=== PATIENT | male | born 1960 | race African-American/Black ===

== ENCOUNTER 2016-06-02 03:00 | Emergency (ER) | payer SELFPAY ==
[~2016-06-02] VITALS: Ht 179.1 cm; Wt 75.0 kg
[~2016-06-02 03:00] MED LIST: IBUP100S30 PO
[2016-06-02 03:13] VITALS: BP 121/74; PULSE 88; RESP 20; TEMP 97.3; O2SAT 96
[2016-06-02] MEDS ORDERED: SODIUM CHLORIDE 0.9% FLUSH 5 ML FLUSH IVF PRN (06:00)
--- NOTE | 2016-06-02 06:08 | PD ---
HPI Chief Complaint: Numbness/Tingling Time Seen by Provider: 05:50 Travel History International Travel<30 days: No Contact w/Intl Traveler<30days: No Traveled to known affect area: No History of Present Illness HPI 56-year-old male here for evaluation of right shoulder pain and right arm numbness. The patient states he has been having these symptoms intermittently for the past 3 months and the reason why is here tonight is because his girlfriend made him come in for evaluation. He denies focal motor deficits or weakness. He also states that he has been having a cough lately and when he coughs he feels as though he may pass out. No chest pain. He smokes cigarettes daily. Denies drug or alcohol use. Chart review shows that the patient was admitted in December 2015 for recurrent syncopal episodes and thought to have TIA. MRI brain at that time showed no acute findings. MRA brain showed atherosclerotic irregularity of both distal internal carotid arteries, no hemodynamically significant stenosis. MRA neck was normal. [facility] Past Medical History Medical History: Denies Significant Hx Blood Disorders: No Cancer: No Cardiovascular Problems: No Endocrine: No Genitourinary: No Immune Disorder: No Musculoskeletal: No Neurologic: No Psychiatric: No Reproductive: No Respiratory: No Past Surgical History Other Surgery: Yes (Sx on left hand. ) Social History Alcohol Use: Yes (states he quit 2 weeks ago ) Tobacco Use: Yes Substance Use: No Allergies-Medications (Allergen,Severity, Reaction): Coded Allergies: Cortisone (Verified Allergy, Unknown, 06/02/16) No Known Allergies (Unverified , 06/02/16) Reported Meds & Prescriptions Reported Meds & Active Scripts Active Review of Systems Except as stated in HPI: all other systems reviewed are Neg Physical Exam Narrative GENERAL: Well-developed, well-nourished, comfortable, no acute distress. SKIN: Warm and dry. No rash. HEAD: Atraumatic. Normocephalic. EYES: Pupils equal and round. No scleral icterus. No injection or drainage. ENT: Mucous membranes pink and moist. NECK: Trachea midline. No JVD. CARDIOVASCULAR: Regular rate and rhythm. No murmur appreciated. RESPIRATORY: No accessory muscle use. Clear to auscultation. Breath sounds equal bilaterally. GASTROINTESTINAL: Abdomen soft, non-tender, nondistended. MUSCULOSKELETAL: No obvious deformities. No clubbing. No cyanosis. No edema. Right shoulder with mild tenderness without obvious deformity, with normal range of motion, without warmth or erythema. The rest of his joints and extremities are without for many, without tenderness, with normal range of motion. NEUROLOGICAL: Awake and alert. No obvious cranial nerve deficits. Motor grossly within normal limits. Normal speech. Normal muscle strength in bilateral upper and lower extremities. PSYCHIATRIC: Appropriate mood and affect; insight and judgment normal. Data Data Last Documented VS Vital Signs Date Time Temp Pulse Resp B/P Pulse Ox O2 Delivery O2 Flow Rate FiO2 06/02/16 03:13 97.3 88 20 121/74 96 Orders Complete Blood Count With Diff (06/02/16 05:54) Comprehensive Metabolic Panel (06/02/16 05:54) Prothrombin Time / Inr (Pt) (06/02/16 05:54) Act Partial Throm Time (Ptt) (06/02/16 05:54) Iv Access Insert/Monitor (06/02/16 05:54) Ecg Monitoring (06/02/16 05:54) Oximetry (06/02/16 05:54) Sodium Chloride 0.9% Flush (Ns Flush) (06/02/16 06:00) Electrocardiogram (06/02/16 05:54) Chest, Single Ap (06/02/16 ) Influenzae A/B Antigen (06/02/16 05:54) Ct Brain W/O Iv Contrast(Rout) (06/02/16 ) Ct Cerv Spine W/O Contrast (06/02/16 ) Shoulder, Complete (>2vws) (06/02/16 ) Ckmb (Isoenzyme) Profile (06/02/16 06:08) Troponin I (06/02/16 06:08) CKMB (06/02/16 06:10) CKMB% (06/02/16 06:10) Sodium Chlor 0.9% 1000 Ml Inj (Ns 1000 M (06/02/16 07:15) Mandatory Outpatient Referral (06/02/16 07:17) Labs Laboratory Tests Test 06/02/16 06:10 White Blood Count 8.3 TH/MM3 Red Blood Count 4.52 MIL/MM3 Hemoglobin 13.9 GM/DL Hematocrit 41.6 % Mean Corpuscular Volume 91.9 FL Mean Corpuscular Hemoglobin 30.8 PG Mean Corpuscular Hemoglobin 33.5 % Concent Red Cell Distribution Width 14.5 % Platelet Count 311 TH/MM3 Mean Platelet Volume 7.2 FL Neutrophils (%) (Auto) 61.3 % Lymphocytes (%) (Auto) 26.4 % Monocytes (%) (Auto) 8.9 % Eosinophils (%) (Auto) 2.7 % Basophils (%) (Auto) 0.7 % Neutrophils # (Auto) 5.1 TH/MM3 Lymphocytes # (Auto) 2.2 TH/MM3 Monocytes # (Auto) 0.7 TH/MM3 Eosinophils # (Auto) 0.2 TH/MM3 Basophils # (Auto) 0.1 TH/MM3 CBC Comment DIFF FINAL Differential Comment Prothrombin Time 10.2 SEC Prothromb Time International 0.9 RATIO Ratio Activated Partial 28.7 SEC Thromboplast Time Sodium Level 142 MEQ/L Potassium Level 3.7 MEQ/L Chloride Level 109 MEQ/L Carbon Dioxide Level 24.3 MEQ/L Anion Gap 9 MEQ/L Blood Urea Nitrogen 11 MG/DL Creatinine 0.85 MG/DL Estimat Glomerular Filtration 113 ML/MIN Rate Random Glucose 98 MG/DL Calcium Level 8.5 MG/DL Total Bilirubin 0.3 MG/DL Aspartate Amino Transf 102 U/L (AST/SGOT) Alanine Aminotransferase 38 U/L (ALT/SGPT) Alkaline Phosphatase 62 U/L Total Creatine Kinase 989 U/L Creatine Kinase MB 9.4 NG/ML Creatine Kinase MB % 1.0 % Troponin I LESS THAN 0.02 NG/ML Total Protein 7.5 GM/DL Albumin 3.7 GM/DL MDM Medical Decision Making Medical Screen Exam Complete: Yes Emergency Medical Condition: Yes Medical Record Reviewed: Yes Interpretation(s) EKG: Sinus, rate 66, normal axis, normal intervals, LVH, early repolarization. Although the machine reading reports acute MT, his EKG is unchanged from prior. He is not having any chest pain. This is not a STEMI. Differential Diagnosis Intracranial abnormality, electrolyte abnormality, cervical spine impingement, dissection, pneumonia, ACS unlikely, radiculopathy, Narrative Course Vital signs show heart rate 80, blood pressure 121/74, pulse ox 96% on room air , oral temp of 97.3F. CBC is unremarkable. CMP is remarkable for AST 102, otherwise unremarkable. CK is 989. CK-MB percent is 1%. Troponin is negative. Chest x-ray: The lungs are clear. The chest x-ray was looked at by me and shows a normal mediastinum. Right shoulder x-ray: Negative exam. Influenza is negative. CT head read as negative noncontrast CT brain. CT cervical spine read as negative cervical spine other than straightening of the cervical lordosis. The patient has normal muscle strength in all 4 extremities. His bilateral distal radial pulses are brisk and equal. I do not believe he has a dissection based on exam. His paresthesias are likely from a peripheral neuropathy. He has normal range of motion in his right shoulder with pain with movement and some mild tenderness. I do not believe that this is a septic arthritis. There is no warmth or erythema. He is afebrile. CK is 989. Patient denies cocaine or illicit drug use. He will be given a liter of IV fluids. All of the patient's EKG machine reading reports acute MT with ST elevations in the inferior leads, patient's EKG is unchanged from prior, and this is more consistent with early repolarization. There are no reciprocal changes. He has no chest pain. Patient was made aware of all findings. He is resting comfortably. 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 At this point I believe he is stable for discharge home with outpatient follow-up and outpatient workup with neurology. I will put in a mandatory outpatient referral for him. He was informed on when to return to the emergency department. He verbalizes understanding and agreement with plan. Diagnosis Primary Impression: Paresthesias Referrals: Jah Hernández MD 3 days Neurologist Primary Care Physician 3 days Additional Instructions: Follow-up with neurologist Dr. Hernández or a neurologist of your choice this week. Follow-up with a primary care physician this week. Return to the emergency department for worsening symptoms or any other concerns. Disposition: 01 DISCHARGE HOME Condition: Stable King Lugo MD Jun 02, 2016 06:08
--- NOTE | 2016-06-02 06:25 | RADRPT ---
EXAM DATE/TIME: 06/02/2016 06:02 [facility] COMPARISON: CT BRAIN W/O CONTRAST, December 14, 2015, 21:20. INDICATIONS : Weakness. RADIATION DOSE: 56.35 CTDIvol (mGy) MEDICAL HISTORY : None SURGICAL HISTORY : None. ENCOUNTER: Initial ACUITY: 1 day PAIN SCALE: 0/10 LOCATION: cranial TECHNIQUE: Multiple contiguous axial images were obtained of the head. Using automated exposure control and adj ustment of the mA and/or kV according to patient size, radiation dose was kept as low as reasonably a chievable to obtain optimal diagnostic quality images. FINDINGS: CEREBRUM: The ventricles are normal for age. No evidence of midline shift, mass lesion, hemorrhage or acute in farction. No extra-axial fluid collections are seen. POSTERIOR FOSSA: The cerebellum and brainstem are intact. The 4th ventricle is midline. The cerebellopontine angle i s unremarkable. EXTRACRANIAL: The visualized portion of the orbits is intact. SKULL: The calvaria is intact. No evidence of skull fracture. CONCLUSION: Negative noncontrast CT brain. Matthew Lim MD on June 02, 2016 at 6:18 Board Certified Radiologist. This report was verified electronically.
--- NOTE | 2016-06-02 06:26 | RADRPT ---
EXAM DATE/TIME: 06/02/2016 06:02 [facility] COMPARISON: No previous studies available for comparison. INDICATIONS : Weakness, right sided body pain. RADIATION DOSE: 33.01 CTDIvol (mGy) MEDICAL HISTORY : None SURGICAL HISTORY : None. ENCOUNTER: Initial ACUITY: 1 day PAIN SCALE: 3/10 LOCATION: neck TECHNIQUE: Volumetric scanning of the cervical spine was performed. Multiplanar reconstructions in the sagittal, coronal and oblique axial planes were performed. Using automated exposure control and adjustment o f the mA and/or kV according to patient size, radiation dose was kept as low as reasonably achievable to obtain optimal diagnostic quality images. FINDINGS: There is straightening of the cervical lordosis. Vertebral body height is maintained. No evidence o f spondylolisthesis. The posterior elements are in normal alignment without evidence of locked or pe rched facets. The spinous processes are intact. The atlantoaxial articulation is intact. No fractu re seen. CONCLUSION: Negative CT cervical spine other than straightening of the cervical lordosis. Matthew Lim MD on June 02, 2016 at 6:24 Board Certified Radiologist. This report was verified electronically.
[2016-06-02 06:36] LABS: AUTOMATED NEUTROPHIL # 5.1 TH/MM3 (1.8-7.7); BASOPHIL # 0.1 TH/MM3 (0-0.2); BASOPHIL % 0.7 % (0.0-2.0); EOSINOPHIL # 0.2 TH/MM3 (0-0.4); EOSINOPHIL % 2.7 % (0.0-4.0); HEMATOCRIT 41.6 % (39.0-51.0); HEMO FLAGS DIFF FINAL; LYMPH % 26.4 % (9.0-44.0); LYMPHOCYTE # 2.2 TH/MM3 (1.0-4.8); MEAN CELL VOLUME 91.9 FL (80.0-100.0); MEAN CORPUSCULAR HEMOGLOBIN 30.8 PG (27.0-34.0); MEAN CORPUSCULAR HGB CONC 33.5 % (32.0-36.0); MONO % 8.9 % (0.0-8.0); NEUT % 61.3 % (16.0-70.0); PLATELET COUNT 311 TH/MM3 (150-450); RED BLOOD COUNT 4.52 MIL/MM3 (4.50-5.90); RED CELL DISTRIBUTION WIDTH 14.5 % (11.6-17.2); WHITE BLOOD COUNT 8.3 TH/MM3 (4.0-11.0)
[2016-06-02 06:38] LABS: APTT (PATIENT) 28.7 SEC (24.3-30.1); INTERNATIONAL NORMALIZED RATIO 0.9 RATIO; PROTHROMBIN TIME - PATIENT 10.2 SEC (9.8-11.6)
[2016-06-02 06:46] LABS: ANION GAP 9 MEQ/L (5-15); AST (GOT) 102 U/L (15-37); BICARBONATE 24.3 MEQ/L (21.0-32.0); BLOOD UREA NITROGEN 11 MG/DL (7-18); CHLORIDE 109 MEQ/L (98-107); GLOMERULAR FILTRATION RATE 113 ML/MIN (>89); POTASSIUM 3.7 MEQ/L (3.5-5.1); SODIUM (NA) 142 MEQ/L (136-145)
--- NOTE | 2016-06-02 06:49 | RADRPT ---
EXAM DATE/TIME: 06/02/2016 06:17 [facility] COMPARISON: No previous studies available for comparison. INDICATIONS : Shortness of breath MEDICAL HISTORY : None. SURGICAL HISTORY : None. ENCOUNTER: Initial ACUITY: 1 day PAIN SCORE: 0/10 LOCATION: Bilateral chest FINDINGS: A single view of the chest demonstrates the lungs to be symmetrically aerated without evidence of mas s, infiltrate or effusion. The cardiomediastinal contours are unremarkable. Osseous structures are intact. CONCLUSION: The lungs are clear. Matthew Lim MD on June 02, 2016 at 6:47 Board Certified Radiologist. This report was verified electronically.
[2016-06-02 06:50] LABS: ALKALINE PHOSPHATASE 62 U/L (45-117); ALT (GPT) 38 U/L (12-78); TOTAL BILIRUBIN ADULT 0.3 MG/DL (0.2-1.0)
--- NOTE | 2016-06-02 06:50 | RADRPT ---
EXAM DATE/TIME: 06/02/2016 06:18 [facility] COMPARISON: No previous studies available for comparison. INDICATIONS : Right shoulder pain. MEDICAL HISTORY : None. SURGICAL HISTORY : None. ENCOUNTER: Initial ACUITY: 1 year PAIN SCORE: 3/10 LOCATION: Right shoulder. FINDINGS: Multiple view examination of the right shoulder demonstrates no evidence of fracture or dislocation. The glenohumeral and acromioclavicular joints are maintained. There is normal range of motion betwe en internal and external rotation. Visualized upper ribs are intact. Bony mineralization is normal. CONCLUSION: Negative exam. Matthew Lim MD on June 02, 2016 at 6:48 Board Certified Radiologist. This report was verified electronically.
[2016-06-02 07:08] LABS: CREATINE KINASE 989 U/L (39-308)
[2016-06-02] MEDS ORDERED: SODIUM CHLOR 0.9% 1000 ML INJ 1,000 ML IV ONE (07:15)
[2016-06-02 07:21] LABS: CKMB 9.4 NG/ML (0.5-3.6)
[2016-06-02 07:31] VITALS: O2SAT 98
--- NOTE | 2016-06-04 22:06 | EKG ---
Date Performed: 06/02/2016 Time Performed: 06:48:08 PTAGE: 56 years EKG: Sinus rhythm VOLTAGE CRITERIA FOR LVH ST ELEVATIONS PROBABLE EARLY REPOLARIZATION Clinical correlation is recomme nded Compared to the PREVIOUS TRACING from 12/15/15, no significant change DOCTOR: Varinder Haywood Interpretating Date/Time 06/04/2016 22:04:59
== END 2016-06-02 09:54 | disposition home or self-care (01) ==
LOC: NEPE 03:00
DX: R20.2 Paresthesia of skin (principal); Z72.0 Tobacco use
CPT/HCPCS: 70450; 71010; 72125; 73030; 80053; 82550; 82552; 84484; 85025; 85610; 85730; 87804; 93005; 99285; J7030